=== PATIENT | female | born 1970 | race Two or more races ===

== ENCOUNTER 2018-05-29 08:40 | Emergency (ER) | payer OTHER ==
[2018-05-29] MEDS ORDERED: ACETAMINOPHEN 325 MG TABLET PO ONE (09:42)
--- NOTE | 2018-05-29 09:50 | ER Document Report ---
HPI - HPI Time Seen by Provider: 05/29/18 09:21 Pain Level: 3 Context: Patient is a 48-year-old female who presents the emergency department with left neck pain. She chronically has neck pain and is seeing pain management for her neck pain. She was at work and some area rugs had fallen and hit her in the back of the head and neck. She currently takes hydrocodone, Mobic, Zanaflex, and gabapentin for pain. She is able to walk. Denies any weakness, numbness, tingling, loss of sensation, or any other neurological deficits. - ROS Systems Reviewed and Negative: Yes All other systems reviewed and negative - CONSTITUTIONAL Constitutional: DENIES: Fever - EENT EENT: DENIES: Sore Throat - NEURO Neurology: DENIES: Headache, Weakness, Vision blurred, Dizzinesss / Vertigo - CARDIOVASCULAR Cardiovascular: DENIES: Chest pain - RESPIRATORY Respiratory: DENIES: Coughing - GASTROINTESTINAL Gastrointestinal: DENIES: Abdominal Pain - REPRODUCTIVE Reproductive: DENIES: : - MUSCULOSKELETAL Musculoskeletal: REPORTS: Neck Pain. DENIES: Extremity pain, Back Pain - DERM Skin Color: Normal Skin Problems: None Past Medical History - Social History Smoking Status: Never Smoker Frequency of alcohol use: Occasional Drug Abuse: None Family History: Reviewed & Not Pertinent Vertical Provider Document - CONSTITUTIONAL Agree With Documented VS: Yes Exam Limitations: No Limitations General Appearance: No Apparent Distress - INFECTION CONTROL TRAVEL OUTSIDE OF THE [place] IN LAST 30 DAYS: No - HEENT HEENT: Atraumatic, Normocephalic - NECK Neck: Normal Inspection, Other - Tender cervical spine at C7 - RESPIRATORY Respiratory: Breath Sounds Normal, No Respiratory Distress - CARDIOVASCULAR Cardiovascular: Regular Rate, Regular Rhythm Pulses: Normal: Radial - MUSCULOSKELETAL/EXTREMETIES Musculoskeletal/Extremeties: FROM - NEURO Level of Consciousness: Awake, Alert, Appropriate Motor/Sensory: No Motor Deficit, No Sensory Deficit, No Pronator Drift - DERM Integumentary: Warm, Dry Course - Re-evaluation Re-evalutation: 05/29/18 10:[address] of the C-spine is negative for any acute fracture. I suspect patient will have some soreness from the trauma that she had from a rug roll falling on top of her. I have advised the patient that I do not want to add any more pain medication to her pain regimen, because I am afraid she may have worsening symptoms. She is to follow-up with her pain management clinic and primary care provider in regards to this visit. Verbal discharge instructions were given to the patient. They verbalized understanding. They are stable for discharge. - Vital Signs Vital signs: Temp Pulse Resp BP Pulse Ox 98.0 F 80 16 116/68 97 05/29/18 08:52 05/29/18 08:52 05/29/18 08:52 05/29/18 08:52 05/29/18 08:52 Discharge - Discharge Clinical Impression: Neck pain Blunt trauma of neck Qualifiers: Encounter type: initial encounter Qualified Code(s): S19.80XA - Other specified injuries of unspecified part of neck, initial encounter Condition: Stable Disposition: HOME, SELF-CARE Additional Instructions: You were seen today in the emergency department after a rug fell on top of you. Please follow-up with your primary care provider in regards to this visit. Please also follow-up with pain management. You can apply Aspercreme with lidocaine to the area as needed. If you are having worsening symptoms, or have any symptoms that are worrisome to you, please return to the emergency department. Forms: Return to Work
--- NOTE | 2018-05-29 10:22 | RADIOLOGY REPORT (SQ) ---
EXAM DESCRIPTION: CT CERVICAL SPINE WITHOUT COMPLETED DATE/TIME: 05/29/2018 10:05 am REASON FOR STUDY: trauma COMPARISON: None. TECHNIQUE: Axial images acquired through the cervical spine without intravenous contrast. Images re viewed with lung, soft tissue and bone windows. Reconstructed coronal and sagittal MPR images review ed. Images stored on PACS. All CT scanners at this facility use dose modulation, iterative reconstruction, and/or weight based d osing when appropriate to reduce radiation dose to as low as reasonably achievable (ALARA). [facility]: Dose Right [facility]: CareDose [facility]: Dose Right [facility]: Teradose 4D [facility]: Smart Radiant Z[employer]ax RADIATION DOSE: CT Rad equipment meets quality standard of care and radiation dose reduction techniq ues were employed. CTDIvol: 10.7 mGy. DLP: 240 mGy-cm. mGy. LIMITATIONS: None. FINDINGS: ALIGNMENT: Anatomic. MINERALIZATION: Normal. VERTEBRAL BODIES: No fractures or dislocation. DISCS: No significant disc disease. FACETS, LATERAL MASSES, POSTERIOR ELEMENTS: No fractures. No dislocation. No acute findings. HARDWARE: None in the spine. VISUALIZED RIBS: No fractures. LUNG APICES AND SOFT TISSUES: No significant or acute findings. OTHER: No other significant finding. IMPRESSION: No fracture or static subluxation of the cervical spine. TECHNICAL DOCUMENTATION: JOB ID: [id number] Quality ID # [id number]: Final reports with documentation of one or more dose reduction techniques (e.g., Au tomated exposure control, adjustment of the mA and/or kV according to patient size, use of iterative reconstruction technique) 2010 [employer]- All Rights Reserved Reading location - IP/workstation name: [email or web address]
[2018-05-29 11:00] VITALS: BP 123/85
== END 2018-05-29 11:00 | disposition home or self-care (01) ==
LOC: ER 08:40
DX: S19.9XXA Unspecified injury of neck, initial encounter (principal); W20.8XXA Other cause of strike by thrown, projected or falling object, initial encounter; Y99.0 Civilian activity done for income or pay; M54.2 Cervicalgia; G89.29 Other chronic pain; Z79.891 Long term (current) use of opiate analgesic; Z79.899 Other long term (current) drug therapy
CPT/HCPCS: 72125; 99284